=== PATIENT | male | born 1950 | race Caucasian/White ===

== ENCOUNTER 2017-11-15 08:45 | Inpatient (IN) | payer OTHER ==
[~2017-11-15] VITALS: Ht 167.6 cm; Wt 81.6 kg
[~2017-11-15 08:45] MED LIST: FOLIC ACID1 MG PO; INTESTINEX680 MG PO; LASIX20 MG PO; MAXIMUM DAILY1 EACH PO; OXYC1TAB9 PO; PANTOPRAZOLE SO40 MG PO; PROPRANOLOL HCL20 MG PO; PROTONIX40 M1 PO; SPIRONOLACTONE25 MG PO; [UNRECOGNIZED DRUG - OTHER] PO
== END 2017-11-24 16:34 | disposition home or self-care (01) | DRG 939 ==
LOC: SURH 11-22 07:00 → O/R 11-22 09:12 → SURH 11-22 09:12
PROVIDERS: Colon & Rectal Surgery
PROC: 0D1N4Z4 Bypass Sigmoid Colon to Cutaneous, Percutaneous Endoscopic Approach (ICD-10-PCS; principal; 2017-11-22 07:00)
DX: Z93.3 Colostomy status (principal); K57.31 Diverticulosis of large intestine without perforation or abscess with bleeding; I85.01 Esophageal varices with bleeding; C20 Malignant neoplasm of rectum; D68.8 Other specified coagulation defects; J98.11 Atelectasis; Z85.038 Personal history of other malignant neoplasm of large intestine; D69.49 Other primary thrombocytopenia; K76.89 Other specified diseases of liver

== ENCOUNTER 2019-04-09 09:25 | Day surgery (SDC) | payer OTHER | END 2019-04-09 13:00 | disposition home or self-care (01) | LOC: AMB-ENDOS 09:25 | DX: K57.30 Diverticulosis of large intestine without perforation or abscess without bleeding (principal) ==

== ENCOUNTER 2020-05-26 09:21 | Day surgery (SDC) | payer OTHER | END 2020-05-26 15:30 | disposition home or self-care (01) | LOC: AMB-ENDOS 09:21 → ADM 12:45 → AMB-ENDOS 15:30 | PROVIDERS: ATTEND Surgery | DX: K62.89 Other specified diseases of anus and rectum (principal); Z20.828 Contact with and (suspected) exposure to other viral communicable diseases ==